=== PATIENT | male | born 1985 | race Caucasian/White ===

== ENCOUNTER → 2018-02-17 09:39 | Outpatient (CLI) | payer OTHER, SELFPAY ==
[2018-02-17 10:23] LABS: Basophils % 0.6 % (0.1-2.0); Eosinophils # 0.4 K/mm3 (0.0-0.4); Eosinophils % 7.4 % (0.1-12.0); Hemoglobin 16.1 g/dL (14.1-18.0); Lymphocytes # 1.9 K/mm3 (0.7-4.5); Lymphocytes % 31.8 K/mm3 (10-50); Mean Corpuscular HGB Conc 32.8 g/dL (31.8-35.4); Mean Corpuscular Hemoglobin 29.4 pg (27.0-31.2); Mean Corpuscular Volume 89.8 fl (80-94); Mean Platelet Volume 7.8 fl (7.4-10.4); Monocytes # 0.4 K/mm3 (0.1-1.0); Monocytes % 6.7 % (1.7-9.3); Neutrophils # 3.2 K/mm3 (1.8-7.8); Neutrophils % 53.5 % (37.0-80.0); Platelet Count 265 K/mm3 (142-424); Red Blood Count 5.46 M/mm3 (4.60-6.20); Red Cell Distribution Width 12.9 % (11.5-17.5)
[2018-02-17 12:35] LABS: Alanine Aminotransferase 29 U/L (12-78); Albumin Level 3.8 gm/dL (3.4-5.0); Albumin/Globulin Ratio 1.1 (1.1-1.8); Alkaline Phosphatase 58 U/L (46-116); Anion Gap 10.6 mEq/L (5-15); Aspartate Amino Transferase 15 U/L (15-37); Bilirubin,Total 0.6 mg/dL (0.2-1.0); Blood Urea Nitrogen 15 mg/dL (7-18); Calcium 8.9 mg/dL (8.5-10.1); Carbon Dioxide 29 mmol/L (21.0-32.0); Chloride 108 mmol/L (98-107); Chol/HDL Ratio 4.1 (1-3.5); Cholesterol 187 mg/dL (140-200); Creatinine,Serum 0.85 mg/dL (0.70-1.30); Estimated Glomerular Filt Rate 103 ml/min (>60); GFR (African American) 125 ML/MIN (>60); Globulin 3.4 gm/dl (1.3-3.2); Glucose 97 mg/dL (74-106); HDL Cholesterol 46 mg/dL (27-67); LDL Cholesterol 128 mg/dL (0-130); Potassium 4.6 mmoL/L (3.5-5.1); Sodium 143 mmol/L (136-145); Thyroid Stimulating Hormone 2.39 uIU/ml (0.358-3.740); Total Protein,Serum 7.2 gm/dL (6.4-8.2); Triglycerides 64 mg/dL (30-200); VLDL Cholesterol 13 mg/dL (0-40)
== END ==
PROVIDERS: PCP Nurse Practitioner Family; Visit Provider Nurse Practitioner Family
DX: R07.89 Other chest pain (principal); R06.02 Shortness of breath; E66.01 Morbid (severe) obesity due to excess calories; G47.19 Other hypersomnia
CPT/HCPCS: 36415; 80053; 80061; 84443; 85025

== ENCOUNTER → 2021-02-24 09:25 | Outpatient (CLI) | payer BC, SELFPAY | PROVIDERS: Visit Provider Nurse Practitioner | DX: Z20.822 Contact with and (suspected) exposure to COVID-19 (principal); U07.1 COVID-19 | CPT/HCPCS: C9803; U0003; U0005 ==

== ENCOUNTER 2022-06-06 09:02 | Emergency (ER) | payer BC, SELFPAY ==
--- NOTE | 2022-06-06 09:07 | XR_ITS ---
PROCEDURE INFORMATION: Exam: XR Left Knee Exam date and time: 06/06/2022 9:40 AM Age: 36 years old Clinical indication: Pain and injury or trauma; Fall; Blunt trauma; Patient HX: Pain in anterior left knee TECHNIQUE: Imaging protocol: Radiologic exam of the Left knee. Views: 3 views. COMPARISON: No relevant prior studies available. FINDINGS: Bones/joints: No acute bony injury or malalignment in the left knee. Marginal osteophytes. Soft tissues: No radiopaque foreign body. IMPRESSION: No acute bony injury or malalignment in the left knee.
[2022-06-06 09:20] VITALS: BP 143/88; PULSE 86; RESP 18; TEMP 36.7; O2SAT 99; BMI 44.6
--- NOTE | 2022-06-06 09:56 | EXP.UTC ---
Discharge Plan Disposition Patient Disposition: Home, Self-Care Condition: Good Prescriptions Prescriptions: New ibuprofen [IBU] 800 mg tablet 800 mg PO TIDP PRN (Reason: Moderate Pain) Qty: 20 0RF No Action fluticasone propionate 50 mcg/actuation spray,suspension 1 spray INTRANASAL DAILY Qty: 16 0RF Rx Instructions: administer into each nostril Referrals Follow up/Referrals: Vladislav Trujillo JR, MD [Physician] - See instructions (Call office for appointment) Provider,MD Tresa [Primary Care Provider] - See instructions Activity Restrictions/Add. Instructions Additional Instructions/Restrictions: *weight bearing as tolerated *RICE, Rest the extremity, Ice 15-20 minutes 3-4 times daily, Compress- wear the keaton wrap as discussed as much as possible to help reduce swelling and pain, Elevate the extremity when at rest *Knee immobilizer is for support and help control swelling, use it except in the shower. Be sure that is not to tight but not to loose either *Elevate when resting? *Ibuprofen 600-800mg every 6-8 hours as needed for pain an inflammation. If need something more can take Tylenol in between doses of Ibuprofen to help Immediately follow up with your family doctor for new or worsening of symptoms, or no noticeable improvement over the next 3-5 days Clinical Impressions Clinical Impression: Contusion of knee Qualifiers: Encounter type: initial encounter Laterality: left Qualified Code(s): S80.02XA - Contusion of left knee, initial encounter Stand Alone Forms Stand Alone Forms: Work/School Release Instructions Patient Instructions: Contusion, DI for Knee Sprain, DI for Contusion, How To Perform RICE (Rest, Ice, Compress, Elevate) Discharge ED Provider: Chiqui Lutz [facility] General Stated complaint: Fall@home LT knee pain 06/04 Mode of Arrival: Ambulatory Source of Information: Patient Limitations: No Limitations Time Seen by Provider: 06/06/22 09:56 Description of Symptoms (Recalled from Triage Doc. by RN): PATIENT C/O SWELLING TO LEFT KNEE AFTER FALLING AND INJURING IT STURDAY AFTERNOON HEENT Symptoms (Recalled from RN notes): No Resp Symptoms (Recalled from RN notes): No Skin Symptoms (Recalled from RN notes): No MS Symptoms (Recalled from RN notes): Yes Functional Status (Recalled from RN notes): WNL History of Present Illness Provider Complaint: Patient states that [place] in [place] the [place] and he fell and landed on his left knee States that since then he has been having pain and swelling in his left knee and hurts when he tries to put weight on it or move it certain ways State that he had some Toradol he had for Kidney stones and took some of it this morning to help with pain but came in to get it checked out Related Data Previous Rx's Medication Instructions Recorded fluticasone propionate 50 1 spray intranasal DAILY #16 grams 04/27/18 mcg/actuation nasal spray,suspension ibuprofen 800 mg tablet (IBU) 800 mg PO TIDP PRN Moderate Pain 06/06/22 #20 tabs Allergies Allergy/AdvReac Type Severity Reaction Status Date / Time cefaclor [CEFACLOR] Allergy Unknown Unverified 04/27/18 17:24 Cephalosporins Allergy Unknown Unverified 04/27/18 17:24 [CEPHALOSPORINS] Worker's Comp Is this a Worker's Comp case?: No [facility] Disclaimer: The information contained in this section may have been updated after the patient was seen, as this information can be updated by other users. Medical History (Updated 06/06/22 @ 10:22 by Chiqui Lutz APRN) Kidney stone Social History (Updated 06/06/22 @ 09:30 by Safia Xiao RN) Smoking Status: Never smoker alcohol intake: current substance use type: denies use current occupational status: employed Travel in the last 8 weeks: None household members: spouse and children housing: house ROS Obtained: Yes All systems reviewed & no additional complaints except as documented and Yes Syste
[2022-06-06 10:28] VITALS: BP 143/88; PULSE 86; RESP 18; TEMP 36.7; O2SAT 99
== END 2022-06-06 10:39 | disposition home or self-care (01) ==
PROVIDERS: Emergency Provider Nurse Practitioner
DX: S80.02XA Contusion of left knee, initial encounter (principal); W19.XXXA Unspecified fall, initial encounter
CPT/HCPCS: 73562; 99212; 99213; G0463

== ENCOUNTER 2023-06-17 08:36 | Emergency (ER) | payer OTHER, SELFPAY ==
[2023-06-17 08:45] VITALS: BP 128/76; PULSE 80; RESP 18; TEMP 36.6; O2SAT 98; BMI 41.4
--- NOTE | 2023-06-17 08:52 | ED_ITS ---
Discharge Plan Disposition Patient Disposition: Home, Self-Care Condition: Good Prescriptions Prescriptions: New colchicine 0.6 mg capsule 0.6 mg PO BID Qty: 30 0RF Rx Instructions: Take two capsule then and hour later take one capsule. Start next dose 12 hours later. Adjust to take 1 cap twice daily until symptoms are gone. Referrals Follow up/Referrals: Provider,Referral, [Primary Care Provider] - See instructions Clinical Impressions Clinical Impression: Gout attack Qualifiers: Gout site: ankle Gout etiology: unspecified cause Laterality: right Qualified Code(s): M10.9 - Gout, unspecified Instructions Patient Instructions: Gout (Alternative Therapy), DI for Gout, Higher Vitamin C Intake Associated With Lower Risk of Gout Discharge ED Provider: Shauna Moseley [facility] General Stated complaint: right foot pain from gaut Time Seen by Provider: 06/17/23 08:51 History of Present Illness Provider Complaint: Pt relates that he has a history of gout and has had another flare in his right ankle. He reports that the sheets hurt his ankle if they touch him. He states that he is on a protein diet and had some steak the other night and feels that this started the flare. Related Data Previous Rx's Medication Instructions Recorded colchicine 0.6 mg capsule 0.6 mg PO BID #30 caps 06/17/23 Allergies Allergy/AdvReac Type Severity Reaction Status Date / Time cefaclor [CEFACLOR] Allergy Unknown Verified 06/17/23 08:55 Cephalosporins Allergy Unknown Verified 06/17/23 08:55 [CEPHALOSPORINS] [facility] Disclaimer: The information contained in this section may have been updated after the patient was seen, as this information can be updated by other users. Medical History (Updated 06/17/23 @ 09:10 by Shauna Moseley APRN) Kidney stone Social History (Updated 06/06/22 @ 10:27 by Chiqui Lutz APRN) Smoking Status: Never smoker alcohol intake: current substance use type: denies use current occupational status: employed Travel in the last 8 weeks: None household members: spouse and children housing: house ROS Obtained: Yes All systems reviewed & no additional complaints except as documented Constitutional Constitutional: Reports system reviewed and no additional complaints, except as documented Eyes Eyes: Reports system reviewed and no additional complaints, except as documented ENT Ears, Nose, Mouth, and Throat: Reports system reviewed and no additional complaints, except as documented Cardiovascular Cardiovascular: Reports system reviewed and no additional complaints, except as documented Respiratory Respiratory: Reports system reviewed and no additional complaints, except as documented Gastrointestinal Gastrointestingal: Reports system reviewed and no additional complaints, except as documented Genitourinary Male Genitourinary: Reports system reviewed and no additional complaints, except as documented Musculoskeletal Musculoskeletal: Reports system reviewed and no additional complaints, except as documented, Reports abnormal gait, Reports arthralgias, Reports joint swelling and Reports limited range of motion Integumentary/Breasts Skin/Breast: Reports system reviewed and no additional complaints, except as documented Neurologic Neurologic: Reports system reviewed and no additional complaints, except as documented and Reports abnormal gait Endocrine Endocrine: Reports system reviewed and no additional complaints, except as do cumented Hematologic/Lymphatic Henatologic/Lymphatic: Reports system reviewed and no additional complaints, except as documented Allergic/Immunologic Allergic/Immunologic: Reports system reviewed and no additional complaints, except as documented Physical Exam General General appearance: alert and in no apparent distress Head Head exam: atraumatic and normocephalic Eye Eye exam: Present normal appearance ENT ENT exam: Present normal exam Neck Neck exam: Present normal inspection Chest Chest inspection: Present normal inspection and symmetric chest wall rise Respiratory Respiratory exam: Present normal lung sounds bilaterally Cardiovascular Cardiovascular exam: Present regular rate, normal rhythm and normal heart sounds Abdominal Exam Abdominal exam: Present soft and normal bowel sounds Expanded Lower Extremity Exam Right: Hip/Pelvis exam: Present normal inspection Upper leg exam: Present normal inspection Knee exam: Present normal inspection Lower leg exam: Present normal inspection Ankle exam: Present tenderness and swelling Foot/toe exam: Present normal inspection Neurovascular/Tendon exam: Present normal capillary refill Gait: observed and limited by pain Back Exam Back exam: Present normal inspection Neurological Exam Neurological exam: Present alert and oriented X3 Psychiatric Psychiatric exam: Present normal affect and normal mood Skin Skin exam: Present warm, dry and intact Lymphatic Lymphatic Findings: no adenopathy Medical Decision Making [place] Inquiry Pt receiving controlled substance: No [place] was queried for this patient: No
[2023-06-17] MEDS: DEXAMETHASONE 4MG/ML 1ML VIAL 4 MG IM (09:15)
[2023-06-17 09:24] VITALS: BP 128/76; PULSE 80; RESP 18; TEMP 36.6; O2SAT 98
== END 2023-06-17 09:23 | disposition home or self-care (01) ==
PROVIDERS: Emergency Provider Nurse Practitioner Family
DX: M10.071 Idiopathic gout, right ankle and foot (principal); M25.571 Pain in right ankle and joints of right foot
CPT/HCPCS: 96372; 99212; 99214; G0463